=== PATIENT | male | born 1975 ===

== ENCOUNTER 2017-03-23 10:25 | Emergency (ER) | payer MEDICAID ==
[2017-03-23 10:25] VITALS: BMI 19.3
[2017-03-23 10:42] VITALS: BP 155/112; PULSE 76; RESP 19; TEMP 98.1; O2SAT 100
--- NOTE | 2017-03-23 10:53 | ED PDOC ---
HPI: CCC, URI, Sore Throat Time Seen by Provider: 03/23/17 10:26 Chief Complaint (Nursing): ENT Problem Chief Complaint (Provider): Left ear pain x 1 week History Per: Patient History/Exam Limitations: no limitations Have you had recent travel within the past 21 days to any of the following countries: [place], [place], [place] or [place]?: No Onset/Duration Of Symptoms: Days Current Symptoms Are (Timing): Still Present Location Of Pain: Ear(s) (Left ) Associated Symptoms: denies: Fever, Chills, Myalgias, Nasal Congestion Ear Symptoms: Left: Ear Pain Severity: Moderate Pain Scale Rating Of: 6 Additional Complaint(s): Pt also reports pain anterior to the ear and states it is worse when he opens and closes his mouth. Past Medical History Reviewed: Historical Data, Nursing Documentation, Vital Signs Vital Signs: Last Vital Signs Temp 98.1 F 03/23/17 10:40 Pulse 76 03/23/17 10:40 Resp 19 03/23/17 10:40 BP 155/112 H 03/23/17 10:40 Pulse Ox 100 03/23/17 10:40 - Medical History PMH: Arthritis, Pancreatitis (acute) Denies: Chronic Kidney Disease - Surgical History Surgical History: No Surg Hx - Family History Family History: States: Unknown Family Hx - Living Arrangements Living Arrangements: With Family - Social History Current smoker - smoking cessation education provided: No Alcohol: Other - Immunization History Hx Tetanus Toxoid Vaccination: No Hx Influenza Vaccination: No Hx Pneumococcal Vaccination: No - Home Medications Home Medications: Ambulatory Orders Medication Instructions Recorded Acetaminophen [Tylenol 325mg tab] 650 mg PO Q6 PRN #30 tab 12/16/16 Naproxen [Naprosyn Tab] 375 mg PO BID PRN #20 tab 12/16/16 Clindamycin [Cleocin] 300 mg PO QID #40 cap 03/23/17 Guaifen/Phenyleph/Acetaminophn 1 tab PO BID #14 tab 03/23/17 [Mucinex Fast-Max Cold & Sinus 325 mg-200 mg-5] - Allergies Allergies/Adverse Reactions: Allergies Allergy/AdvReac Type Severity Reaction Status Date / Time Penicillins Allergy RASH Verified 12/16/16 13:37 Review of Systems ROS Statement: Except As Marked, All Systems Reviewed And Found Negative Constitutional: Negative for: Fever, Chills ENT: Positive for: Ear Pain Physical Exam - Reviewed Nursing Documentation Reviewed: Yes Vital Signs Reviewed: Yes - Physical Exam Appears: Positive for: Well, Non-toxic, No Acute Distress Head Exam: Positive for: ATRAUMATIC, NORMAL INSPECTION, NORMOCEPHALIC Skin: Positive for: Normal Color, Warm, DRY Eye Exam: Positive for: Normal appearance ENT: Positive for: Normal ENT Inspection, Pharynx Is, TM Is/Are Neck: Positive for: Normal, Painless ROM Cardiovascular/Chest: Positive for: Regular Rate, Rhythm Respiratory: Positive for: Normal Breath Sounds. Negative for: Accessory Muscle Use, Respiratory Distress Back: Positive for: Normal Inspection Extremity: Positive for: Normal ROM. Negative for: Tenderness Neurologic/Psych: Positive for: Alert - ECG O2 Sat by Pulse Oximetry: 100 Pulse Ox Interpretation: Normal Disposition - Clinical Impression Clinical Impression: Left ear pain - Patient ED Disposition Is Patient to be Admitted: No Counseled Patient/Family Regarding: Studies Performed, Diagnosis, Need For Followup, Rx Given - Disposition Referrals: [facility] [Outside] [facility] [Outside] Disposition: Routine/Home Disposition Time: 10:53 Condition: GOOD Prescriptions: Clindamycin [Cleocin] 300 mg PO QID #40 cap Guaifen/Phenyleph/Acetaminophn [Mucinex Fast-Max Cold & Sinus 325 mg-200 mg-5] 1 tab PO BID #14 tab Instructions: Earache (ED)
== END 2017-03-23 11:33 | disposition home or self-care (01) ==
LOC: H.ER 10:25
DX: H92.02 Otalgia, left ear (principal); K85.90 Acute pancreatitis without necrosis or infection, unspecified; Z88.0 Allergy status to penicillin

== ENCOUNTER 2017-09-20 13:30 | Observation (INO) | payer MEDICAID, OTHER ==
[2017-09-20 13:30] VITALS: BMI 19.3
[2017-09-20 14:16] LABS: BASO % 0.5 % (0.0-2.0); EOS % 0.3 % (0.0-4.0); HEMOGLOBIN 13.3 g/dL (12.0-18.0); LYMPH # 0.9 K/uL (1.0-4.3); LYMPH % 16.3 % (20.0-40.0); MEAN CELL VOLUME 99.1 fl (80.0-94.0); MEAN CORPUSCULAR HEMOGLOBIN 33.8 pg (27.0-31.0); MEAN PLATELET VOLUME 7.3 fl (7.2-11.7); MONO # 0.5 K/uL (0.0-0.8); MONO % 9.1 % (0.0-10.0); NEUT # 4.1 K/uL (1.8-7.0); NEUT % 73.8 % (50.0-75.0); RBC 3.95 Mil/uL (4.40-5.90); RED CELL DISTRIBUTION WIDTH 13.4 % (11.5-14.5); WHITE BLOOD COUNT 5.5 K/uL (4.8-10.8)
--- NOTE | 2017-09-20 14:30 | ED PDOC ---
HPI: Psych/Substance Abuse Time Seen by Provider: 09/20/17 13:40 Chief Complaint (Nursing): Substance Abuse Chief Complaint (Provider): Substance Abuse History Per: Patient History/Exam Limitations: no limitations Onset/Duration Of Symptoms: Hrs ([employer]) Current Symptoms Are (Timing): Still Present Modifying Factor(s): Alcohol, Cocaine Additional History Per: EMS Additional Complaint(s): 42 year old male with a history of pancreatitis and arthritis presents to the ED via [facility] s/p fall. As per EMS, patient was found on ground awake. Patient states he fell after experiencing generalized weakness. He currently has a headache, dizziness, chest pain, but denies shortness of breath. Patient last drank alcohol hours ago and consumed cocaine last night. He denies LOC, focal weakness, other injures or any other medical complaints. PMD: none provided. Past Medical History Reviewed: Historical Data, Nursing Documentation, Vital Signs Vital Signs: Last Vital Signs Temp 98.7 F 09/20/17 13:33 Pulse 90 09/20/17 13:33 Resp 20 09/20/17 13:33 BP 158/104 H 09/20/17 13:33 Pulse Ox 99 09/20/17 13:33 - Medical History PMH: Arthritis, Pancreatitis (acute) Denies: Chronic Kidney Disease - Surgical History Surgical History: No Surg Hx - Family History Family History: States: Unknown Family Hx - Social History Current smoker - smoking cessation education provided: Yes Ex-Smoker (has not smoked in the last 12 months): No Alcohol: Other (yes, last a couple of hours ago) Drugs: Cocaine - Immunization History Hx Tetanus Toxoid Vaccination: No Hx Influenza Vaccination: No Hx Pneumococcal Vaccination: No - Home Medications Home Medications: Ambulatory Orders Medication Instructions Recorded No Known Home Med 09/20/17 - Allergies Allergies/Adverse Reactions: Allergies Allergy/AdvReac Type Severity Reaction Status Date / Time Penicillins Allergy RASH Verified 09/20/17 13:33 Review of Systems ROS Statement: Except As Marked, All Systems Reviewed And Found Negative Cardiovascular: Positive for: Chest Pain Respiratory: Negative for: Shortness of Breath Neurological: Positive for: Weakness (generalized but no focal), Headache, Dizziness Physical Exam - Reviewed Nursing Documentation Reviewed: Yes Vital Signs Reviewed: Yes - Physical Exam Appears: Positive for: Non-toxic, No Acute Distress Head Exam: Positive for: ATRAUMATIC, NORMOCEPHALIC Skin: Positive for: Normal Color, Warm, Dry Eye Exam: Positive for: EOMI, Normal appearance, PERRL Neck: Positive for: Normal, Painless ROM, Supple Cardiovascular/Chest: Positive for: Regular Rate, Rhythm. Negative for: Murmur Respiratory: Positive for: Normal Breath Sounds. Negative for: Respiratory Distress Gastrointestinal/Abdominal: Positive for: Normal Exam, Soft. Negative for: Tenderness Extremity: Positive for: Normal ROM (upper and lower extremities). Negative for : Deformity, Swelling Neurologic/Psych: Positive for: Alert, Oriented (x3) - Laboratory Results Result Diagrams: 09/20/17 14:12 09/20/17 14:12 - ECG Interpretation Of ECG: NSR @ 74, no ST-T changes. O2 Sat by Pulse Oximetry: 99 (RA) Pulse Ox Interpretation: Normal - Physician Consult Information Time Consulting Physican Contacted: 16:38 Physician Contacted: Eliseo Malik Medical Decision Making Medical Decision Making: Time: 13:55 Initial Impression: cocaine, chest pain, headache and generalized weakness Initial Plan: --CT head --EKG --Alcohol serum --CMP --Urine drug screen --Troponin --CBC with differentials --PTT --Prothrombin time --CXR --Glucose --Ativan 2mg IVP --Urinalysis Time: 14:35 CT Head: FINDINGS: HEMORRHAGE: No intracranial hemorrhage. BRAIN: No mass effect or edema. No atrophy or chronic microvascular ischemic changes. VENTRICLES: Unremarkable. No hydrocephalus. CALVARIUM: Unremarkable. PARANASAL SINUSES: Unremarkable as visualized. No significant inflammatory changes. MASTOID AIR CELLS: Unremarkable as visualized. No inflammatory changes. OTHER FINDINGS: None. IMPRESSION: No acute intracranial abnormalities. No significant findings to account for the clinical presentation. Time: 14:51 CXR: FINDINGS: LUNGS: No active pulmonary disease. PLEURA: No significant pleural effusion identified, no pneumothorax apparent. CARDIOVASCULAR: Normal. OSSEOUS STRUCTURES: Healed posteromedial 4th rib fracture. VISUALIZED UPPER ABDOMEN: Normal. OTHER FINDINGS: None. IMPRESSION: No active disease. Scribe Attestation: Documented by Meghan Jones, acting as a scribe for Rajani Agudelo MD Provider Scribe Attestation: All medical record entries made by the Scribe were at my direction and personally dictated by me. I have reviewed the chart and agree that the record accurately reflects my personal performance of the history, physical exam, medical decision making, and the department course for this patient. I have also personally directed, reviewed, and agree with the discharge instructions and disposition. Disposition - Clinical Impression Clinical Impression: Chest pain, Cocaine abuse, Alcohol abuse - Patient ED Disposition Is Patient to be Admitted: Yes - Disposition Disposition Time: 15:43 Condition: STABLE - Pt Status Changed To: Hospital Disposition Of: Observation - POA Present On Arrival: None
[2017-09-20 14:32] LABS: INR 0.9 (0.9-1.2); PARTIAL THROMBOPLASTIN TIME 31.5 Seconds (25.6-37.1); PROTHROMBIN TIME 10.4 Seconds (9.8-13.1)
--- NOTE | 2017-09-20 14:36 | CT ---
PROCEDURE: CT HEAD WITHOUT CONTRAST. HISTORY: Vertigo COMPARISON: None available. TECHNIQUE: Axial computed tomography images were obtained through the head/brain without intravenous contrast. Coronal and sagittal reconstructed images. Radiation dose: Total exam DLP = 776.23 mGy-cm. This CT exam was performed using one or more of the following dose reduction techniques: Automated exposure control, adjustment of the mA and/or kV according to patient size, and/or use of iterative reconstruction technique. FINDINGS: HEMORRHAGE: No intracranial hemorrhage. BRAIN: No mass effect or edema. No atrophy or chronic microvascular ischemic changes. VENTRICLES: Unremarkable. No hydrocephalus. CALVARIUM: Unremarkable. PARANASAL SINUSES: Unremarkable as visualized. No significant inflammatory changes. MASTOID AIR CELLS: Unremarkable as visualized. No inflammatory changes. OTHER FINDINGS: None. IMPRESSION: No acute intracranial abnormalities. No significant findings to account for the clinical presentation.
[2017-09-20 14:48] LABS: URINE BILIRUBIN NEGATIVE (NEGATIVE); URINE BLOOD NEGATIVE (NEGATIVE); URINE CLARITY SLIGHTY-CLOUDY (Clear); URINE COLOR YELLOW (YELLOW); URINE GLUCOSE (UA) NEG (Normal); URINE LEUKOCYTE ESTERASE NEG Leu/uL (Negative); URINE PROTEIN 100 mg/dL (NEGATIVE); URINE UROBILINOGEN 0.2-1.0 mg/dL (0.2-1.0)
--- NOTE | 2017-09-20 14:52 | RAD ---
HISTORY: Chest pain COMPARISON: None FINDINGS: LUNGS: No active pulmonary disease. PLEURA: No significant pleural effusion identified, no pneumothorax apparent. CARDIOVASCULAR: Normal. OSSEOUS STRUCTURES: Healed posteromedial 4th rib fracture. VISUALIZED UPPER ABDOMEN: Normal. OTHER FINDINGS: None. IMPRESSION: No active disease.
[2017-09-20 14:53] LABS: ALB/GLOB RATIO 1.3 (1.0-2.1); ALBUMIN 5.2 g/dL (3.5-5.0); ALT/SGPT 74 U/L (21-72); AST/SGOT 108 U/L (17-59); BLOOD UREA NITROGEN 9 mg/dl (9-20); CALCIUM 9.9 mg/dL (8.4-10.2); GFR AFRICAN-AMERICAN > 60; GFR NON-AFRICAN AMERICAN > 60
[2017-09-20 15:27] LABS: BARBITURATES, UR NEGATIVE (NEGATIVE)
[2017-09-20 15:32] LABS: BENZODIAZEPINES, UR NEGATIVE (NEGATIVE); OPIATES, UR NEGATIVE (NEGATIVE); PHENCYCLIDINE, UR NEGATIVE (NEGATIVE)
[2017-09-20] MEDS ORDERED: Pneumococcal 23-Valent Vaccine IM ONE (20:21)
--- NOTE | 2017-09-20 21:21 | CARD ---
APPROVED REPORT EKG Measurement Heart [id number] <Conclusion> Normal sinus rhythm Septal infarct, age undetermined Abnormal ECG
[2017-09-21 05:46] LABS: MEAN CORPUSCULAR HEMOGLOBIN 34.3 pg (27.0-31.0); MEAN CORPUSCULAR HGB CONC 34.3 g/dL (33.0-37.0); RBC 4.07 Mil/uL (4.40-5.90); WHITE BLOOD COUNT 5.9 K/uL (4.8-10.8)
[2017-09-21 06:04] LABS: T4 5.67 ug/dl (5.5-11.0)
[2017-09-21 06:10] LABS: ALB/GLOB RATIO 1.2 (1.0-2.1); ALBUMIN 4.7 g/dL (3.5-5.0); ALT/SGPT 63 U/L (21-72); AST/SGOT 100 U/L (17-59); BLOOD UREA NITROGEN 14 mg/dl (9-20); CALCIUM 9.9 mg/dL (8.4-10.2); GFR AFRICAN-AMERICAN > 60; GFR NON-AFRICAN AMERICAN > 60
[2017-09-21 06:14] LABS: LDL CHOLESTEROL 89 mg/dL (0-129)
[2017-09-21 08:02] LABS: HDL CHOLESTEROL 132 MG/DL (30-70)
[2017-09-21] MEDS: Enoxaparin 40 mg Syringe SC SCH (08:56)
--- NOTE | 2017-09-21 12:02 | CARD ---
APPROVED REPORT EKG Measurement Heart [id number] <Conclusion> Sinus bradycardia Otherwise normal ECG
--- NOTE | 2017-09-21 14:34 | CP.PCM.HP ---
History of Present Illness - History of Present Illness History of Present Illness: Patient seen and examined at bedside with Dr. Montano. 42 yr old M presented to ED via EMS s/p fall. Patient reports he felt weak and fell to the floor. Associated symptoms are headache, dizziness and chest pain. Per EMS, patient was found on the floor conscious. Patient reports recent consumption of alcohol and cocaine. Denies fever, chills, nausea, vomiting, diarrhea, dysuria, one sided numbness/weakness/tingling or sweating. PMHx includes pancreatitis and arthritis. PMD: none PMHx: pancreatitis, arthritis, Etoh abuse, Cocaine abuse SurgHx: denies FMHx: noncontributory SocHx: positive for Etoh abuse (last drank few hours ago), positive for Cocaine abuse (last use yesterday), positive for tobacco use (4-5 cig daily), lives with family Medications: none Allergies: Penicillin ED course: -Head CT: No acute intracranial abnormalities. No significant findings to account for the clinical presentation. -EKG: normal sinus rhythm at 74 bpm, septal infarct-age undetermined -CXR: no active disease -CBC wnl, coag wnl, CMP with elevated AST 108 and ALT 74, rest wnl -troponin negative -urinalysis wnl -urine toxicology positive for cocaine -serum alcohol 66 mg/dL Present on Admission - Present on Admission Any Indicators Present on Admission: No History of DVT/PE: No History of Uncontrolled Diabetes: No Urinary Catheter: No Decubitus Ulcer Present: No History Surgical Site Infection Following: None Review of Systems - Constitutional Constitutional: Headache - EENT Ears: absent: Dizziness Nose/Mouth/Throat: absent: Sore Throat - Cardiovascular Cardiovascular: Chest Pain. absent: Dyspnea, Palpitations, Syncope - Respiratory Respiratory: absent: Cough, Dyspnea, Hemoptysis - Gastrointestinal Gastrointestinal: absent: Diarrhea, Nausea, Vomiting - Genitourinary Genitourinary: absent: Difficulty Urinating, Dysuria - Musculoskeletal Musculoskeletal: Arthralgias, Back Pain - Neurological Neurological: absent: Confusion, Weakness - Endocrine Endocrine: absent: Fatigue - Hematologic/Lymphatic Hematologic: absent: Easy Bleeding, Easy Bruising Past Patient History - Infectious Disease Hx of Infectious Diseases: None - Past Medical History & Family History Past Medical History?: Yes - Past Social History Smoking Status: Light Smoker < 10 Cigarettes Daily - CARDIAC Hx Cardiac Disorders: No - PULMONARY Hx Respiratory Disorders: No - NEUROLOGICAL Hx Neurological Disorder: No - HEENT Hx HEENT Problems: No - RENAL Hx Chronic Kidney Disease: No - ENDOCRINE/METABOLIC Hx Endocrine Disorders: No - HEMATOLOGICAL/ONCOLOGICAL Hx Blood Disorders: No - INTEGUMENTARY Hx Dermatological Problems: No - MUSCULOSKELETAL/RHEUMATOLOGICAL Hx Musculoskeletal Disorders: Yes Hx Arthritis: Yes Hx Falls: Yes - GASTROINTESTINAL Hx Gastrointestinal Disorders: Yes Hx Pancreatitis: Yes (acute) - GENITOURINARY/GYNECOLOGICAL Hx Genitourinary Disorders: Yes - PSYCHIATRIC Hx Psychophysiologic Disorder: No Hx Substance Use: Yes (Cocaine) - SURGICAL HISTORY Hx Surgeries: No - ANESTHESIA Hx Anesthesia: No Meds Allergies/Adverse Reactions: Allergies Allergy/AdvReac Type Severity Reaction Status Date / Time Penicillins Allergy RASH Verified 09/20/17 13:33 Physical Exam - Constitutional Appears: No Acute Distress (unkempt) - Head Exam Head Exam: ATRAUMATIC, NORMOCEPHALIC - Eye Exam Eye Exam: EOMI, PERRL - ENT Exam ENT Exam: Mucous Membranes Moist - Respiratory Exam Respiratory Exam: Clear to Auscultation Bilateral, NORMAL BREATHING PATTERN - Cardiovascular Exam Cardiovascular Exam: REGULAR RHYTHM - GI/Abdominal Exam GI & Abdominal Exam: Normal Bowel Sounds, Soft. absent: Tenderness - Extremities Exam Extremities exam: Positive for: full ROM - Neurological Exam Neurological exam: Alert, CN II-XII Intact (grossly intact), Oriented x3 Additional comments: CIWA-Ar score 0 - Psychiatric Exam Psychiatric exam: Anxious - Skin Skin Exam: Dry, Normal Color, Warm Results - Vital Signs Recent Vital Signs: Last Vital Signs Temp 98.3 F 09/21/17 12:27 Pulse 65 09/21/17 12:27 Resp 18 09/21/17 12:27 BP 123/83 09/21/17 12:27 Pulse Ox 99 09/21/17 12:27 - Labs Result Diagrams: 09/21/17 04:20 09/21/17 04:20 Labs: Laboratory Results - last 24 hr 09/20/17 09/20/17 09/20/17 14:05 14:12 14:12 WBC 5.5 RBC 3.95 L Hgb 13.3 Hct 39.2 MCV 99.1 H MCH 33.8 H MCHC 34.0 RDW 13.4 Plt Count 227 MPV 7.3 Neut % (Auto) 73.8 Lymph % (Auto) 16.3 L Citrus % (Auto) 9.1 Eos % (Auto) 0.3 Baso % (Auto) 0.5 Neut # (Auto) 4.1 Lymph # (Auto) 0.9 L [place] # (Auto) 0.5 Eos # (Auto) 0.0 Baso # (Auto) 0.0 PT INR APTT Sodium 141 Potassium 4.2 Chloride 99 Carbon Dioxide 27 Anion Gap 19 BUN 9 Creatinine 0.6 L Est GFR ( Amer) > 60 Est GFR (Non-Af Amer) > 60 POC Glucose (mg/dL) 66 Random Glucose 86 Calcium 9.9 Total Bilirubin 1.1 AST 108 H ALT 74 H D Alkaline Phosphatase 108 Troponin I < 0.0120 Total Protein 9.3 H Albumin 5.2 H D Globulin 4.1 H Albumin/Globulin Ratio 1.3 Triglycerides Cholesterol LDL Cholesterol Direct HDL Cholesterol Vitamin B12 Thyroxine (T4) TSH 3rd Generation Urine Color Urine Clarity Urine pH Ur Specific [place] Urine Protein Urine Glucose (UA) Urine Ketones Urine Blood Urine Nitrate Urine Bilirubin Urine Urobilinogen Ur Leukocyte Esterase Urine RBC (Auto) Urine Microscopic WBC Urine Opiates Screen Urine Methadone Screen Ur Barbiturates Screen Ur Phencyclidine Scrn Ur Amphetamines Screen U Benzodiazepines Scrn U Oth Cocaine Metabols U Cannabinoids Screen Alcohol, Quantitative 66 H 09/20/17 09/20/17 09/20/17 14:12 14:34 14:34 WBC RBC Hgb Hct MCV MCH MCHC RDW Plt Count MPV Neut % (Auto) Lymph % (Auto) Citrus % (Auto) Eos % (Auto) Baso % (Auto) Neut # (Auto) Lymph # (Auto) [place] # (Auto) Eos # (Auto) Baso # (Auto) PT 10.4 INR 0.9 APTT 31.5 Sodium Potassium Chloride Carbon Dioxide Anion Gap BUN Creatinine Est GFR ( Amer) Est GFR (Non-Af Amer) POC Glucose (mg/dL) Random Glucose Calcium Total Bilirubin AST ALT Alkaline Phosphatase Troponin I Total Protein Albumin Globulin Albumin/Globulin Ratio Triglycerides Cholesterol LDL Cholesterol Direct HDL Cholesterol Vitamin B12 Thyroxine (T4) TSH 3rd Generation Urine Color Yellow Urine Clarity Slighty-cloudy Urine pH 6.0 Ur Specific [place] 1.018 Urine Protein 100 Urine Glucose (UA) Neg Urine Ketones Trace Urine Blood Negative Urine Nitrate Negative Urine Bilirubin Negative Urine Urobilinogen 0.2-1.0 Ur Leukocyte Esterase Neg Urine RBC (Auto) 1 Urine Microscopic WBC 1 Urine Opiates Screen Negative Urine Methadone Screen Negative Ur Barbiturates Screen Negative Ur Phencyclidine Scrn Negative Ur Amphetamines Screen Negative U Benzodiazepines Scrn Negative U Oth Cocaine Metabols Positive H U Cannabinoids Screen Negative Alcohol, Quantitative 09/20/17 09/21/17 09/21/17 21:30 04:20 04:20 WBC 5.9 RBC 4.07 L Hgb 14.0 Hct 40.6 MCV 100.0 H MCH 34.3 H MCHC 34.3 RDW 13.0 Plt Count 223 MPV Neut % (Auto) Lymph % (Auto) [place] % (Auto) Eos % (Auto) Baso % (Auto) Neut # (Auto) Lymph # (Auto) [place] # (Auto) Eos # (Auto) Baso # (Auto) PT INR APTT Sodium 138 Potassium 4.1 Chloride 99 Carbon Dioxide 25 Anion Gap 18 BUN 14 Creatinine 0.7 L Est GFR ( Amer) > 60 Est GFR (Non-Af Amer) > 60 POC Glucose (mg/dL) Random Glucose 123 H Calcium 9.9 Total Bilirubin 1.4 H AST 100 H ALT 63 Alkaline Phosphatase 99 Troponin I < 0.0120 < 0.0120 Total Protein 8.7 H Albumin 4.7 Globulin 3.9 Albumin/Globulin Ratio 1.2 Triglycerides 55 D Cholesterol 284 H LDL Cholesterol Direct 89 HDL Cholesterol 132 H Vitamin B12 554 Thyroxine (T4) 5.67 TSH 3rd Generation 2.81 Urine Color Urine Clarity Urine pH Ur Specific [place] Urine Protein Urine Glucose (UA) Urine Ketones Urine Blood Urine Nitrate Urine Bilirubin Urine Urobilinogen Ur Leukocyte Esterase Urine RBC (Auto) Urine Microscopic WBC Urine Opiates Screen Urine Methadone Screen Ur Barbiturates Screen Ur Phencyclidine Scrn Ur Amphetamines Screen U Benzodiazepines Scrn U Oth Cocaine Metabols U Cannabinoids Screen Alcohol, Quantitative Assessment & Plan - Assessment and Plan (Free Text) Assessment: 42 yr old M admitted for chest pain, cocaine and alcohol abuse. Plan: -admit to telemetry -cardiac monitoring -f/u troponins -Cardiology consult appreciated -tylenol PRN for back pain -regular diet - Date & Time Date: 09/21/17 Time: 07:40
[2017-09-21] MEDS: Multivitamin With Minerals Tab PO SCH (15:48)
--- NOTE | 2017-09-21 23:08 | CON ---
DATE: 09/21/2017 REASON FOR CONSULTATION: Chest pain. HISTORY OF PRESENT ILLNESS: The patient is a 42-year-old male who has a history of ETOH abuse, cocaine abuse, history of pancreatitis, presented by EMS because of a fall. The patient was found awake, and did report generalized weakness, headache, chest pain, and dizziness. The patient was asked for cocaine. The patient was admitted to telemetry. At this time, he denies any chest pain. SOCIAL HISTORY: The patient is a smoker and drinker. He is unemployed. MEDICATIONS: The patient is currently on subcutaneous Lovenox 20 mg daily. He did receive aspirin 325 mg orally in the ER. REVIEW OF SYSTEMS: No vomiting or diarrhea. No fever or chills. PHYSICAL EXAMINATION: GENERAL: The patient is a young, middle-aged male, who does not appear to be in any acute distress. VITAL SIGNS: Blood pressure 123/83, heart rate 65, temperature 98.3, respirations 18. HEENT: Normocephalic. CHEST: Clear. HEART: S1 and S2 regular. EXTREMITIES: No edema. LABORATORY DATA: Today's SMA-7 is within normal limits except for glucose of 123 and creatinine 0.7. Total bilirubin is slightly elevated to 1.4. Three sets of troponins are negative. TSH level is within normal limits. PT, PTT and INR are within normal limits. Hemoglobin and hematocrit, white count, and platelet count are within normal limits. Urine for drug screening is positive for cocaine, and alcohol level on admission was 66. EKG revealed sinus rhythm, septal infarct of indeterminate age. ASSESSMENT: 1. Status post cocaine abuse. 2. Chest pain, myocardial infarction was ruled out. 3. Alcohol abuse. RECOMMENDATIONS: Resume aspirin 81 mg once daily, continue Lovenox 20 mg once daily. Start Imdur at 60 mg once a day. Obtain an echocardiogram. Eliseo Malik MD
[2017-09-22] MEDS: Multivitamin With Minerals Tab PO SCH (08:38)
[2017-09-22] MEDS: Enoxaparin 40 mg Syringe SC SCH (08:38)
[2017-09-22] MEDS ORDERED: Lidocaine 5% Patch TD SCH (09:00)
--- NOTE | 2017-09-22 09:31 | CP.PCM.DIS ---
Provider - Provider Date of Admission: 09/20/17 15:43 Attending physician: Luther Montano MD Consults: Dr. Malik Time Spent in preparation of Discharge (in minutes): 30 Diagnosis - Discharge Diagnosis (1) Chest pain Status: Acute Priority: Low (2) Alcohol abuse Status: Chronic Priority: Low (3) Cocaine abuse Status: Chronic Priority: Medium Hospital Course - Lab Results Lab Results: Most Recent Lab Values WBC 5.9 K/uL (4.8-10.8) 09/21/17 04:20 RBC 4.07 Mil/uL (4.40-5.90) L 09/21/17 04:20 Hgb 14.0 g/dL (12.0-18.0) 09/21/17 04:20 Hct 40.6 % (35.0-51.0) 09/21/17 04:20 MCV 100.0 fl (80.0-94.0) H 09/21/17 04:20 MCH 34.3 pg (27.0-31.0) H 09/21/17 04:20 MCHC 34.3 g/dL (33.0-37.0) 09/21/17 04:20 RDW 13.0 % (11.5-14.5) 09/21/17 04:20 Plt Count 223 K/uL (130-400) 09/21/17 04:20 MPV 7.3 fl (7.2-11.7) 09/20/17 14:12 Neut % (Auto) 73.8 % (50.0-75.0) 09/20/17 14:12 Lymph % (Auto) 16.3 % (20.0-40.0) L 09/20/17 14:12 [place] % (Auto) 9.1 % (0.0-10.0) 09/20/17 14:12 Eos % (Auto) 0.3 % (0.0-4.0) 09/20/17 14:12 Baso % (Auto) 0.5 % (0.0-2.0) 09/20/17 14:12 Neut # (Auto) 4.1 K/uL (1.8-7.0) 09/20/17 14:12 Lymph # (Auto) 0.9 K/uL (1.0-4.3) L 09/20/17 14:12 [place] # (Auto) 0.5 K/uL (0.0-0.8) 09/20/17 14:12 Eos # (Auto) 0.0 K/uL (0.0-0.7) 09/20/17 14:12 Baso # (Auto) 0.0 K/uL (0.0-0.2) 09/20/17 14:12 PT 10.4 Seconds (9.8-13.1) 09/20/17 14:12 INR 0.9 (0.9-1.2) 09/20/17 14:12 APTT 31.5 Seconds (25.6-37.1) 09/20/17 14:12 Sodium 138 mmol/l (132-148) 09/21/17 04:20 Potassium 4.1 MMOL/L (3.6-5.0) 09/21/17 04:20 Chloride 99 mmol/L (98-107) 09/21/17 04:20 Carbon Dioxide 25 mmol/L (22-30) 09/21/17 04:20 Anion Gap 18 (10-20) 09/21/17 04:20 BUN 14 mg/dl (9-20) 09/21/17 04:20 Creatinine 0.7 mg/dl (0.8-1.5) L 09/21/17 04:20 Est GFR ( Amer) > 60 09/21/17 04:20 Est GFR (Non-Af Amer) > 60 09/21/17 04:20 POC Glucose (mg/dL) 66 mg/dL (65-110) 09/20/17 14:05 Random Glucose 123 mg/dL (75-110) H 09/21/17 04:20 Calcium 9.9 mg/dL (8.4-10.2) 09/21/17 04:20 Total Bilirubin 1.4 mg/dl (0.2-1.3) H 09/21/17 04:20 AST 100 U/L (17-59) H 09/21/17 04:20 ALT 63 U/L (21-72) 09/21/17 04:20 Alkaline Phosphatase 99 U/L (38-126) 09/21/17 04:20 Troponin I < 0.0120 ng/mL (0.00-0.120) 09/21/17 04:20 Total Protein 8.7 G/DL (6.3-8.2) H 09/21/17 04:20 Albumin 4.7 g/dL (3.5-5.0) 09/21/17 04:20 Globulin 3.9 gm/dL (2.2-3.9) 09/21/17 04:20 Albumin/Globulin Ratio 1.2 (1.0-2.1) 09/21/17 04:20 Triglycerides 55 mg/DL (0-149) D 09/21/17 04:20 Cholesterol 284 mg/dL (0-199) H 09/21/17 04:20 LDL Cholesterol Direct 89 mg/dL (0-129) 09/21/17 04:20 HDL Cholesterol 132 MG/DL (30-70) H 09/21/17 04:20 Vitamin B12 554 pg/mL (239-931) 09/21/17 04:20 Thyroxine (T4) 5.67 ug/dl (5.5-11.0) 09/21/17 04:20 TSH 3rd Generation 2.81 mIU/ML (0.46-4.68) 09/21/17 04:20 Urine Color Yellow (YELLOW) 09/20/17 14:34 Urine Clarity Slighty-cloudy (Clear) 09/20/17 14:34 Urine pH 6.0 (5.0-8.0) 09/20/17 14:34 Ur Specific [place] 1.018 (1.003-1.030) 09/20/17 14:34 Urine Protein 100 mg/dL (NEGATIVE) 09/20/17 14:34 Urine Glucose (UA) Neg mg/dL (Normal) 09/20/17 14:34 Urine Ketones Trace mg/dL (NEGATIVE) 09/20/17 14:34 Urine Blood Negative (NEGATIVE) 09/20/17 14:34 Urine Nitrate Negative (NEGATIVE) 09/20/17 14:34 Urine Bilirubin Negative (NEGATIVE) 09/20/17 14:34 Urine Urobilinogen 0.2-1.0 mg/dL (0.2-1.0) 09/20/17 14:34 Ur Leukocyte Esterase Neg [place]/uL (Negative) 09/20/17 14:34 Urine RBC (Auto) 1 /hpf (0-3) 09/20/17 14:34 Urine Microscopic WBC 1 /hpf (0-5) 09/20/17 14:34 Urine Opiates Screen Negative (NEGATIVE) 09/20/17 14:34 Urine Methadone Screen Negative (NEGATIVE) 09/20/17 14:34 Ur Barbiturates Screen Negative (NEGATIVE) 09/20/17 14:34 Ur Phencyclidine Scrn Negative (NEGATIVE) 09/20/17 14:34 Ur Amphetamines Screen Negative (NEGATIVE) 09/20/17 14:34 U Benzodiazepines Scrn Negative (NEGATIVE) 09/20/17 14:34 U Oth Cocaine Metabols Positive (NEGATIVE) H 09/20/17 14:34 U Cannabinoids Screen Negative (NEGATIVE) 09/20/17 14:34 Alcohol, Quantitative 66 mg/dl (0-10) H 09/20/17 14:12 - Hospital Course Hospital Course: 42 yr old M admitted for chest pain, cocaine and alcohol abuse. Patient was seen and evaluated by cardiology. Echocardiogram resulted normal systolic function with LVEF 60-65%. Vitals remained stable, chest pain resolved. Patient was discharged stable with instructions to follow up with a primary care provider within 1 week, discontinue alcohol and cocaine abuse. Continue with aspirin 81mg PO QD and Imdur 60 mg PO QD. - Date & Time of H&P Date of H&P: 09/21/17 Time of H&P: 07:40 Discharge Exam - Head Exam Head Exam: ATRAUMATIC, NORMOCEPHALIC - Eye Exam Eye Exam: Normal appearance - ENT Exam ENT Exam: Mucous Membranes Moist - Neck Exam Neck exam: Full Rom - Respiratory Exam Respiratory Exam: NORMAL BREATHING PATTERN - Cardiovascular Exam Cardiovascular Exam: REGULAR RHYTHM, +S1, +S2 - GI/Abdominal Exam GI & Abdominal Exam: Normal Bowel Sounds, Soft. absent: Tenderness - Extremities Exam Extremities exam: full ROM - Neurological Exam Neurological exam: Alert, CN II-XII Intact, Oriented x3 - Psychiatric Exam Psychiatric exam: Normal Affect, Normal Mood - Skin Skin Exam: Dry Discharge Plan - Discharge Medications Prescriptions: Aspirin [Aspirin Chewable] 81 mg PO DAILY #30 chew Folic Acid 1 mg PO DAILY #30 tab Isosorbide Mononitrate [Imdur] 60 mg PO DAILY #30 tab Multimineral/Multivitamin [Therapeutic-M Tab] 1 tab PO DAILY #30 tab - Follow Up Plan Condition: STABLE Patient education suggested?: Yes Instructions: Cocaine Use Disorder, Chest Pain That Is Not Caused by the Heart (DC), Drug Abuse and Drug Addiction (DC), Alcohol Abuse and Alcoholism (DC), Effects of Alcohol on Your Health Additional Instructions: -Follow up with a primary care provider within 1 week -Discontinue alcohol and cocaine abuse -Continue with aspirin 81mg PO QD and Imdur 60 mg PO QD pt. cleared for d/c to home today Jeronimo, echo results wnl Referrals: Luther Montano MD [Staff Provider] -
--- NOTE | 2017-09-22 11:09 | CARD ---
APPROVED REPORT EXAM: Two-dimensional and M-mode echocardiogram with Doppler and color Doppler. Other Information Quality : GoodRhythm : INDICATION Chest Pain 2D DIMENSIONS IVSd1.20 (0.7-1.1cm)LVDd4.09 (3.9-5.9cm) LVOT Diameter1.96 (1.8-2.4cm)PWd1.15 (0.7-1.1cm) IVSs1.49 (0.8-1.2cm)LVDs3.30 (2.5-4.0cm) FS (%) 19.2 %PWs1.28 (0.8-1.2cm) M-Mode DIMENSIONS Left Atrium (MM)3.27 (2.5-4.0cm)IVSd1.33 (0.7-1.1cm) Aortic Root3.32 (2.2-3.7cm)LVDd4.40 (4.0-5.6cm) Aortic Cusp Exc.1.72 (1.5-2.0cm)PWd1.09 (0.7-1.1cm) IVSs1.15 cmFS (%) 16 % LVDs3.68 (2.0-3.8cm)PWs1.09 cm Mitral Valve MV E Utchkeue56.3cm/sMV DECEL [id number] A Eqhdjrke89.6cm/s MV [id number]/A ratio1.0MVA (PHT)4.31cm2 TDI Lateral E' Peak V12.63cm/sMedial E' Peak V7.17cm/sE/Lateral E'3.3 E/Medial E'5.8 Pulmonary Valve PV Peak Frtiuzgh76.9cm/s LEFT VENTRICLE The left ventricle is normal size. The left ventricular function is normal. The left ventricular ejection fraction is within the normal range. The Ejection Fraction is 60-65%. There is normal LV segmental wall motion. The left ventricular diastolic function is normal. RIGHT VENTRICLE The right ventricle is normal size. The right ventricular systolic function is normal. ATRIA The left atrium size is normal. The right atrium size is normal. AORTIC VALVE The aortic valve is normal in structure. No aortic regurgitation is present. There is no aortic valvular stenosis. MITRAL VALVE The mitral valve is normal in structure. There is no mitral valve stenosis. There is no mitral valve regurgitation noted. TRICUSPID VALVE The tricuspid valve is normal in structure. There is no tricuspid valve regurgitation noted. PULMONIC VALVE The pulmonary valve is normal in structure. There is no pulmonic valvular regurgitation. GREAT VESSELS The aortic root is normal in size. The IVC is normal in size and collapses >50% with inspiration. PERICARDIAL EFFUSION The pericardium appears normal. <Conclusion> The left ventricle is normal size. The left ventricular function is normal. The left ventricular ejection fraction is within the normal range. The Ejection Fraction is 60-65%.
[2017-09-22 16:06] VITALS: BP 114/78; PULSE 86; RESP 16; TEMP 97.9; O2SAT 99
--- NOTE | 2017-09-22 22:57 | PN ---
DATE: 09/22/2017 FOLLOWUP SUBJECTIVE: The patient denies any chest pain today. PHYSICAL EXAMINATION: VITAL SIGNS: Blood pressure 114/78, heart rate 86, temperature 97.9, respirations 16. HEENT: Normocephalic. CHEST: Bilateral rhonchi. HEART: S1, S2 are regular. EXTREMITIES: No edema. Echocardiographic study performed yesterday revealed normal left ventricular size and systolic function. ASSESSMENT: 1. Status post cocaine abuse. 2. Chest pain, myocardial infarction ruled out. 3. Ethyl alcohol abuse. RECOMMENDATIONS: Case was discussed with ANIMAL SCIENTIST. The patient can be discharged from cardiac point of view with considering referring the patient to drug rehab. Eliseo Malik MD
== END 2017-09-22 16:35 | disposition home or self-care (01) ==
LOC: H.ER 13:30 → H.ERHOLD 15:43 → H.TEL 18:51
PROVIDERS: ADMIT Internal Medicine; ATTEND Internal Medicine
DX: R07.9 Chest pain, unspecified (principal); F10.10 Alcohol abuse, uncomplicated; F14.10 Cocaine abuse, uncomplicated; Y90.3 Blood alcohol level of 60-79 mg/100 ml; Z88.0 Allergy status to penicillin; Z23 Encounter for immunization; M19.90 Unspecified osteoarthritis, unspecified site; Z72.0 Tobacco use
CPT/HCPCS: 36415; 70450; 71045; 80053; 80061; 80320; 80324; 80345; 80346; 80349; 80353; 80358; 80361; 81003; 82607; 82948; 83992; 84436; 84443; 84484; 85025; 85027; 85610; 85730; 90471; 90732; 93005; 93306; 96372; 96374; 99285; G0378; J1650; J2060

== ENCOUNTER 2017-10-07 13:13 | Emergency (ER) | payer OTHER ==
[2017-10-07 13:22] VITALS: RESP 18
[2017-10-07] MEDS ORDERED: Bacitracin OINT 15GM TOP STA (13:32)
[2017-10-07] MEDS ORDERED: Tdap Vaccine 0.5 ml Vial (10-64 yrs) IM ONE ×2 (13:32→14:22)
[2017-10-07] MEDS ORDERED: Lidocaine 1% Inj (20ml) IJ ONE (13:37)
[2017-10-07] MEDS ORDERED: Lidocaine 1% Inj (20ml) ONE (13:56)
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
[2017-10-07 14:28] LABS: BASO # 0.1 K/uL (0.0-0.2); BASO % 0.8 % (0.0-2.0); EOS # 0.1 K/uL (0.0-0.7); EOS % 1.1 % (0.0-4.0); HEMOGLOBIN 11.9 g/dL (12.0-18.0); LYMPH # 1.8 K/uL (1.0-4.3); LYMPH % 26.6 % (20.0-40.0); MEAN CELL VOLUME 98.7 fl (80.0-94.0); MEAN CORPUSCULAR HGB CONC 34.5 g/dL (33.0-37.0); MEAN PLATELET VOLUME 6.8 fl (7.2-11.7); MONO # 0.7 K/uL (0.0-0.8); MONO % 10.6 % (0.0-10.0); NEUT # 4.2 K/uL (1.8-7.0); NEUT % 60.9 % (50.0-75.0); RBC 3.51 Mil/uL (4.40-5.90); RED CELL DISTRIBUTION WIDTH 13.3 % (11.5-14.5); WHITE BLOOD COUNT 6.9 K/uL (4.8-10.8)
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
[2017-10-07 14:51] LABS: BARBITURATES, UR NEGATIVE (NEGATIVE); BENZODIAZEPINES, UR NEGATIVE (NEGATIVE); OPIATES, UR NEGATIVE (NEGATIVE); PHENCYCLIDINE, UR NEGATIVE (NEGATIVE)
[2017-10-07 15:03] LABS: BLOOD UREA NITROGEN 7 mg/dl (9-20); CALCIUM 8.7 mg/dL (8.4-10.2); GFR AFRICAN-AMERICAN > 60; GFR NON-AFRICAN AMERICAN > 60
[2017-10-07 19:13] VITALS: BP 128/78; PULSE 82; TEMP 98.1
[2017-10-07 20:22] VITALS: O2SAT 98
== END 2017-10-07 19:13 | disposition home or self-care (01) ==
LOC: H.ER 13:13 → MERGE 13:13 → H.ER 19:13
DX: S61.411A Laceration without foreign body of right hand, initial encounter (principal); S00.83XA Contusion of other part of head, initial encounter; S02.2XXA Fracture of nasal bones, initial encounter for closed fracture; F10.129 Alcohol abuse with intoxication, unspecified; Y04.0XXA Assault by unarmed brawl or fight, initial encounter; Y92.89 Other specified places as the place of occurrence of the external cause; Z88.0 Allergy status to penicillin

== ENCOUNTER 2017-10-21 11:15 | Emergency (ER) | payer OTHER ==
[2017-10-21 11:15] VITALS: BMI 19.3
[2017-10-21 11:29] VITALS: RESP 18
[2017-10-21 12:51] VITALS: BP 122/74; PULSE 79; TEMP 98.6; O2SAT 100
--- NOTE | 2017-10-21 16:42 | ED PDOC ---
HPI: General Adult Time Seen by Provider: 10/21/17 11:56 Chief Complaint (Nursing): Abnormal Skin Integrity Chief Complaint (Provider): Abnormal Skin Integrity History Per: Patient History/Exam Limitations: no limitations Onset/Duration Of Symptoms: Days (x7) Current Symptoms Are (Timing): Still Present Additional Complaint(s): 42 y/o male presents to the ED for evaluation of left hand sutures, onset one week ago. Patient states sutures were applied on his left hand one week ago. Patient states he was afraid to clean it and get it wet. Patient reports he did not sterile dressing. Denies fever, numbness, and tingling. PMD: None Provided Past Medical History Reviewed: Historical Data, Nursing Documentation, Vital Signs Vital Signs: Last Vital Signs Temp 98.6 F 10/21/17 12:50 Pulse 79 10/21/17 12:50 Resp 18 10/21/17 12:50 BP 122/74 10/21/17 12:50 Pulse Ox 100 10/21/17 16:50 - Medical History PMH: Arthritis, Pancreatitis (acute) Denies: Chronic Kidney Disease - Surgical History Surgical History: No Surg Hx - Family History Family History: States: Unknown Family Hx - Immunization History Hx Tetanus Toxoid Vaccination: No Hx Influenza Vaccination: No Hx Pneumococcal Vaccination: No - Home Medications Home Medications: Ambulatory Orders Medication Instructions Recorded Aspirin [Aspirin Chewable] 81 mg PO DAILY #30 chew 09/22/17 Folic Acid 1 mg PO DAILY #30 tab 09/22/17 Isosorbide Mononitrate [Imdur] 60 mg PO DAILY #30 tab 09/22/17 Multimineral/Multivitamin 1 tab PO DAILY #30 tab 09/22/17 [Therapeutic-M Tab] Acetaminophen [Acetaminophen 8 650 mg PO Q8 #14 tablet.er 10/07/17 Hour] Bacitracin OINT 1 applic TOP BID #1 tube 10/07/17 Clindamycin [Cleocin] 300 mg PO TID #21 cap 10/21/17 - Allergies Allergies/Adverse Reactions: Allergies Allergy/AdvReac Type Severity Reaction Status Date / Time Penicillins Allergy RASH Verified 09/20/17 13:33 Review of Systems Skin: Positive for: Other (Sutures noted to left hand. ) Physical Exam - Reviewed Nursing Documentation Reviewed: Yes Vital Signs Reviewed: Yes - Physical Exam Appears: Positive for: No Acute Distress Cardiovascular/Chest: Negative for: Bradycardia, Tachycardia Respiratory: Negative for: Respiratory Distress Pulses-Radial (L): 2+ Pulses-Radial (R): 2+ Extremity: Positive for: Normal ROM (Left Thumb with FULL ROM actively including MCP joint. ), Capillary Refill (> 2 seconds in the left thumb), Other (1.5 cm dehisced wound with minimal surrounding erythema and seven sutures [address] noted to the left dorsal hand over the first MCP; No fluctuance, no discharge) Neurologic/Psych: Positive for: Alert, Oriented. Negative for: Motor/Sensory Deficits - ECG O2 Sat by Pulse Oximetry: 100 (RA) Pulse Ox Interpretation: Normal Medical Decision Making Medical Decision Making: Time: 1237 Plan: -- Cleocin 300 mg PO -- All sutures removed without difficulty. Steri strip dressing applied over wound. Scribe Attestation: Documented by Wilver Enamorado acting as a scribe for Bhupendra Warner PA-C. Provider Scribe Attestation: All medical record entries made by the Scribe were at my direction and personally dictated by me. I have reviewed the chart and agree that the record accurately reflects my personal performance of the history, physical exam, medical decision making, and the department course for this patient. I have also personally directed, reviewed, and agree with the discharge instructions and disposition. Disposition - Clinical Impression Clinical Impression: Visit for suture removal, Visit for wound check - Patient ED Disposition Is Patient to be Admitted: No - Disposition Referrals: [facility] [Outside] Disposition: Routine/Home Disposition Time: 12:50 Condition: STABLE Additional Instructions: ROXANE VÁZQUEZ, thank you for letting us take care of you today. Your provider was Baltazar Fuentes MD and you were treated for SUTURE REMOVAL. The emergency medical care you received today was directed at your acute symptoms. If you were prescribed any medication, please fill it and take as directed. It may take several days for your symptoms to resolve. Return to the Emergency Department if your symptoms worsen, do not improve, or if you have any other problems. Please contact your doctor or call one of the physicians/clinics you have been referred to that are listed on the Patient Visit Information form that is included in your discharge packet. Bring any paperwork you were given at discharge with you along with any medications you are taking to your follow up visit. Our treatment cannot replace ongoing medical care by a primary care provider outside of the emergency department. Thank you for allowing the [facility] team to be part of your care today. If you had an X-Ray or CT scan: A Radiologist will review the ED reading if any change in treatment is needed we will contact you. If you had a blood, urine, or wound culture: It will take several days for the results, if any change in treatment is needed we will contact you. If you had an STI test: It will take 48 hours for the results. Please call after 1 week if you have not heard back. Prescriptions: Clindamycin [Cleocin] 300 mg PO TID #21 cap Instructions: Stitches Removal, Wound Dehiscence (DC) Forms: [employer] (Yi) Print Language: CYMRO
== END 2017-10-21 12:50 | disposition home or self-care (01) ==
LOC: H.ER 11:15
DX: Z48.02 Encounter for removal of sutures (principal); Z88.0 Allergy status to penicillin